=== PATIENT | male | born 1985 | race Two or more races ===

== ENCOUNTER 2018-12-30 19:40 | Emergency (ER) | payer MEDICAID, OTHER ==
[~2018-12-30] VITALS: Ht 170.2 cm; Wt 85.7 kg
[2018-12-30 22:53] VITALS: BP 126/85
[2018-12-30] MEDS ORDERED: LIDOCAINE W/ EPINEPHRINE 2% INJ 20ML VIAL IJ ONE (23:15)
[2018-12-30] MEDS ORDERED: cefTRIAXone SOD 1,000 MG VL IM ONE (23:15)
[2018-12-31] MEDS ORDERED: BACITRACIN-POLYMYXIN B TOPICAL OINT UD TOP ONE (00:30)
[2018-12-31] MEDS ORDERED: HYDROcodone-ACET 10/325MG TAB PO ONE (00:30)
[2018-12-31] MEDS ORDERED: BACLOFEN 10 MG TAB PO ONE (00:30)
== END 2018-12-31 00:42 | disposition home or self-care (01) ==
LOC: ER 19:49
DX: S11.81XA Laceration without foreign body of other specified part of neck, initial encounter (principal); V86.06XA Driver of dirt bike or motor/cross bike injured in traffic accident, initial encounter; Y93.89 Activity, other specified; Y99.8 Other external cause status; Y92.89 Other specified places as the place of occurrence of the external cause
CPT/HCPCS: 12005; 70490; 96372; 99284; J0696